=== PATIENT | female | born 1940 | race Caucasian/White ===

== ENCOUNTER 2017-09-18 13:49 | Emergency (ER) | payer OTHER, MEDICARE ==
[~2017-09-18] VITALS: Ht 157.5 cm; Wt 82.8 kg
[2017-09-18 16:00] VITALS: BP 109/44
== END 2017-09-18 16:01 | disposition home or self-care (01) ==
LOC: EME 13:49
DX: R04.0 Epistaxis (principal); I10 Essential (primary) hypertension; E78.5 Hyperlipidemia, unspecified; F41.9 Anxiety disorder, unspecified
CPT/HCPCS: 99281; 99285